=== PATIENT | male | born 1995 | race Caucasian/White ===

== ENCOUNTER 2017-12-04 13:55 | Emergency (ER) | payer OTHER ==
[~2017-12-04] VITALS: Ht 180.3 cm; Wt 73.4 kg
[2017-12-04 14:05] VITALS: TEMP 36.9; Ht 180.3 cm; Wt 73.4 kg
[2017-12-04 14:50] VITALS: BP 135/84; PULSE 66; O2SAT 99
--- NOTE | 2017-12-04 21:21 | EMERGENCY ROOM VISIT NOTE ---
ED Visit Note First contact with patient: 14:09 Chief Complaint: I have a lump on my right leg. History of Present Illness: Mr. Santos is a 22-year-old white male who ambulates into the ED complaining of a lump on the lateral aspect of the left thigh. Patient reports he does ago he was climbing on a climbing wall and struck his leg on the wall. He reports initially he developed some bruising in the area but that resolved. Over the last 5 days he has noted some increasing swelling and tenderness over the lateral aspect of the thigh. Currently he describes his pain as a pressure and when palpated sharp like discomfort over the right lateral thigh. He rates his discomfort 7/10. The pain is nonradiating. The pain also worsens with ambulation and palpation. He has not identified any alleviating factors related to the pain. He reports initially was taken some ibuprofen but has not taken any medication in the last few days. He denies any associated symptoms including fevers, chills, sweats, skin eruptions, skin color changes, back pain, hip pain, knee pain, lower leg pain, leg weakness/numbness/tingling. Review of Systems: As noted above in history of present illness. 5 5 body systems were reviewed and found to be negative as noted above. Past Medical History: Patient denies. Current Medications: Patient denies. Allergies to Medications: Patient denies. Social History: Patient is currently university student; he feels safe in his home environment; he denies tobacco use. Physical Examination: Vital Signs: Date Time Temp Pulse Resp B/P (MAP) Pulse Ox O2 Delivery O2 Flow Rate FiO2 12/04/17 14:50 66 16 135/84 99 12/04/17 14:05 36.9 94 16 106/74 97 Room Air GENERAL: 22-year-old male in mild distress due to pain, nontoxic-appearing, afebrile and hemodynamically stable. NEUROLOGICAL: Awake, alert and oriented to person, place and time. Answering questions appropriately and following commands. Normal gait. Good hand eye coordination. No focal motor sensory deficits. SKIN: Warm, dry and pink. Right Lateral Thigh. Patient has a non-erythematous lump measuring 4-5 cm over the lateral thigh. It is tender to palpation. Skin does not appear cellulitic. There is no lymphangitis. There is no warmth to the area. Wound was warm to palpation and not fluctuant. THORAX: Lungs sounds are clear to auscultation and equal bilaterally with symmetrical chest wall. ABDOMEN: Flat, soft and nontender. Positive bowel sounds in all quadrants. No guarding, rigidity or organomegaly. RIGHT LOWER EXTREMITY: Localized lesion as noted above. No tenderness in the hip, knee, lower leg, ankle or foot. Full range of motion of the hip, ankle and foot. Throughout the leg the skin was warm and pink and capillary refill is brisk. He is able to distinguish light sensations to all dermatomes. ED Course: Patient is assessed as noted above. Patient's medication list was reviewed. An ultrasound was performed by Kassidy Heath NP, and there appeared to be a hematoma in the area. Patient was educated about today's findings and instructed on his treatment plan ; he verbalized understanding and agreement with this plan. Clinical Impression: Left thigh hematoma. Disposition: Patient discharged home in stable condition; prior to departure he was reassessed and subjectively reported he was feeling better and rated his discomfort 4/10. Plan: Comfort measures were discussed with the patient including use of ibuprofen and acetaminophen, heat and ice. Patient was encouraged to follow-up with PCP or return to the ED for any signs of infection including increasing redness, puslike drainage, red streaking or fevers.
== END 2017-12-04 14:50 | disposition home or self-care (01) ==
LOC: C.EDB 13:58 → C.EDD 14:50
DX: S70.12XA Contusion of left thigh, initial encounter (principal); M79.605 Pain in left leg; W22.8XXA Striking against or struck by other objects, initial encounter